=== PATIENT | male | born 1990 | race Caucasian/White ===

== ENCOUNTER 2020-05-08 22:11 | Emergency (ER) | payer OTHER ==
[~2020-05-08] VITALS: Ht 182.9 cm; Wt 72.6 kg
--- OUTSIDE RECORDS SUMMARY | ~2020-05-08 | XMS | Encounter Summary ---
Demographics + + + | Address | [address] | | | [place] [address] | + + + | Home Phone | | + + + | Preferred Language | Unknown | + + + | Marital Status | Single | + + + | Holiness Affiliation | Unknown | + + + | Race | White | + + + | Ethnic Group | Not or | + + + Author + + + | Author | [facility] | | | and [place] | + + + | Organization | [facility] | | | and [place] | + + + | Address | Unknown | + + + | Phone | Unavailable | + + + Support + + +---------+ + | Name | Relationship | Address | Phone | + + +---------+ + | Susan Devine | ECON | Unknown | | + + +---------+ + Care Team Providers + +------+ + | Care Overnight Houseperson Name | Role | Phone | + +------+ + PCP | Unavailable | + +------+ + Encounter Details +--------+ + + + + | Date | Type | Department | Care Team | Description | +--------+ + + + + | 05/22/ | Hospital | [facility] | Rupesh Cordova | | | 2011 | Encounter | HOSPITAL EMERGENCY | [address] | | | | | [address] | [facility] | | | | | [address] [place], [place] | [place] [address] | | | | | [address] | [phone] | | | | | [phone] | | | +--------+ + + + + Social History + +-------+ +--------+------+ | Tobacco Use | Types | Packs/Day | Years | Date | | | | | Used | | + +-------+ +--------+------+ | Never Assessed | | | | | + +-------+ +--------+------+ + + + | Sex Assigned at | Date Recorded | | | | + + + | Not on file | | + + + documented as of this encounter Plan of Treatment Not on filedocumented as of this encounter Visit Diagnoses Not on filedocumented in this encounter"
--- OUTSIDE RECORDS SUMMARY | ~2020-05-08 | XMS | Encounter Summary ---
Demographics + + + | Address | [address] | | | [place] [address] | + + + | Home Phone | | + + + | Preferred Language | Unknown | + + + | Marital Status | Single | + + + | Mandaeism Affiliation | Unknown | + + + | Race | White | + + + | Ethnic Group | Not or | + + + Author + + + | Author | [facility] | | | and [place] | + + + | Organization | [facility] | | | [...] Team Providers + +------+ + | Care Secretarial Stenographer Name | Role | Phone | + +------+ + PCP | Unavailable | + +------+ + Encounter Details +--------+ + + + + | Date | Type | Department | Care Team | Description | +--------+ + + + + | 06/29/ | Hospital | [facility] | Jonathan William | | | 2016 | Encounter | HOSPITAL EMERGENCY | [address] | | | | | [address] | [address] | | | | | [address] [place], [place] | [place], [place] [address] | | | | | [address] | [phone] | | | | | [phone] | | | +--------+ + + + [...]
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
--- OUTSIDE RECORDS SUMMARY | ~2020-05-08 | XMS | Encounter Summary ---
Demographics + + + | Address | [address] | | | [place] [address] | + + + | Home Phone | | + + + | Preferred Language | Unknown | + + + | Marital Status | Single | + + + | Lutheran Affiliation | Unknown | + + + | Race | White | + + + | Ethnic Group | Not or | + + + Author + + + | Author | [facility] | | | and [place] | + + + | Organization | [facility] | | | and [...] Team Providers + +------+ + | Care Hired Hand Name | Role | Phone | + +------+ + PCP | Unavailable | + +------+ + Encounter Details +--------+ + + + + | Date | Type | Department | Care Team | Description | +--------+ + + + + | 05/17/ | Hospital | [facility] | Nikkie Arnold, | | | 2011 | Encounter | HOSPITAL EMERGENCY | [address] | | | | | [address] | [place] | | | | | [place] | [address] | | | | | [address] | | | | | | [phone] | | | +--------+ + + + [...]
--- OUTSIDE RECORDS SUMMARY | ~2020-05-08 | XMS | Encounter Summary ---
Demographics + + + | Address | [address] | | | [place] [address] | + + + | Home Phone | | + + + | Preferred Language | Unknown | + + + | Marital Status | Single | + + + | Temple Affiliation | Unknown | + + + | Race | White | + + + | Ethnic Group | Not or | + + + Author + + + | Author | [facility] | | | and [place] | + + + | Organization | [facility] | | | and [...] Team Providers + +------+ + | Care Fisher Trawl Net Name | Role | Phone | + +------+ + PCP | Unavailable | + +------+ + Encounter Details +--------+ + + + + | Date | Type | Department | Care Team | Description | +--------+ + + + + | 04/19/ | Hospital | [facility] | Nikkie Arnold, | | | 2011 | Encounter | HOSPITAL EMERGENCY | [address] | | | | | [address] | [place] | | | | | [place] | [address] | | | | | [address] | | | | | | [phone] | | | +--------+ + + + [...]
--- OUTSIDE RECORDS SUMMARY | ~2020-05-08 | XMS | Encounter Summary ---
Demographics + + + | Address | [address] | | | [place] [address] | + + + | Home Phone | | + + + | Preferred Language | Unknown | + + + | Marital Status | Single | + + + | Yazidism Affiliation | Unknown | + + + | Race | White | + + + | Ethnic Group | Not or | + + + Author + + + | Author | [facility] | | | and [place] | + + + | Organization | [facility] | | | and [...] Team Providers + +------+ + | Care Well Testing Operator Name | Role | Phone | + +------+ + PCP | Unavailable | + +------+ + Encounter Details +--------+ + + + + | Date | Type | Department | Care Team | Description | +--------+ + + + + | 05/17/ | Hospital | [facility] | Nikkie Arnold, | | | 2011 | Encounter | HOSPITAL EMERGENCY | [address] | | | | | [address] | [place] | | | | | [place] | [address] | | | | | [address] | | | | | | [phone] | | | +--------+ + + + [...]
--- OUTSIDE RECORDS SUMMARY | ~2020-05-08 | XMS | Encounter Summary ---
Demographics + + + | Address | [address] | | | [place] [address] | + + + | Home Phone | | + + + | Preferred Language | Unknown | + + + | Marital Status | Single | + + + | Catholic Affiliation | Unknown | + + + | Race | White | + + + | Ethnic Group | Not or | + + + Author + + + | Author | [facility] | | | and [place] | + + + | Organization | [facility] | | | [...] Team Providers + +------+ + | Care Railroad Accountant Name | Role | Phone | + +------+ + PCP | Unavailable | + +------+ + Encounter Details +--------+ + + + + | Date | Type | Department | Care Team | Description | +--------+ + + + + | 07/07/ | [facility] | [facility] | Talib Garcia | | | 2011 | Encounter | HOSPITAL EMERGENCY | [address] | | | | | [address] | [facility] | | | | | [address] [place], [place] | [place] [address] | | | | | [address] | [phone] | | | | | [phone] | | | +--------+ + + + [...]
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
--- OUTSIDE RECORDS SUMMARY | ~2020-05-08 | XMS | Encounter Summary ---
Demographics + + + | Address | [address] | | | [place] [address] | + + + | Home Phone [...] + + + | Author | [facility] | | | and [place] | + + + | Organization | [facility] | | [...] Team Providers + +------+ + | Care Catshovel Driver Name | Role | Phone | + +------+ + PCP | Unavailable | + +------+ + Encounter Details +--------+ + + + + | Date | Type | Department | Care Team | Description | +--------+ + + + + | 12/18/ | [facility] | [facility] | Talib Garcia | | | 2011 | Encounter | HOSPITAL EMERGENCY | [address] | | | | | [address] | [facility] | | | | | [address] [place], [place] | [place] [address] | | | | | [address] | [phone] | | | | | [phone] | | | +--------+ + + + [...]
--- OUTSIDE RECORDS SUMMARY | ~2020-05-08 | XMS | Encounter Summary ---
Demographics + + + | Address | [address] | | | [place] [address] | + + + | Home Phone | | + + + | Preferred Language | Unknown | + + + | Marital Status | Single | + + + | Rastafarian Affiliation | Unknown | + + + | Race | White | + + + | Ethnic Group | Not or | + + + Author + + + | Author | [facility] | | | and [place] | + + + | Organization | [facility] | | | and [...] Team Providers + +------+ + | Care Ladies' Locker Room Attendant Name | Role | Phone | + +------+ + PCP | Unavailable | + +------+ + Encounter Details +--------+ + + + + | Date | Type | Department | Care Team | Description | +--------+ + + + + | 05/20/ | Hospital | [facility] | Jonathan William | | | 2011 | Encounter | HOSPITAL EMERGENCY | [address] | | | | | [address] | [address] | | | | | [address] [place], [place] | [place] [address] | | | | | [address] | [phone] | | | | | [phone] | | | +--------+ + + + [...]
--- OUTSIDE RECORDS SUMMARY | ~2020-05-08 | XMS | Encounter Summary ---
Demographics + + + | Address | [address] | | | [place] [address] | + + + | Home Phone | | + + + | Preferred Language | Unknown | + + + | Marital Status | Single | + + + | Christianity Affiliation | Unknown | + + + | Race | White | + + + | Ethnic Group | Not or | + + + Author + + + | Author | [facility] | | | and Neftaliana | + + + | Organization | [facility] | | | [...] Team Providers + +------+ + | Care Ncr Operator Name | Role | Phone | + +------+ + | No, Physician | PCP | Unavailable | + +------+ + Reason for Referral Evaluate & Treat (Routine) +--------+ + + + + + | Status | Reason | Specialty | Diagnoses / | Referred By | Referred To | | | | | Procedures | Contact | Contact | +--------+ + + + + + | Closed | Specialty | Urology | Diagnoses | Breanne, | Isma, | | | Services | | Naveen Sheppard | Jadon Mahmood, | | | Required | | Epididymo-or | MD [place] | [address] | | | | | chad | [address] | | | | | | [address] [place] | [place], | | | | | | [place] | [place] [address] | | | | | | [address] | Phone: | | | | | | Phone: | [phone] | | | | | | [phone] | Fax: | | | | | | Fax: | [phone] | | | | | | [phone] | | +--------+ + + + + + Reason for Visit + + + | Reason | Comments | + + + | Groin Swelling | | + + + Encounter Details +--------+ + + + + | Date | Type | Department | Care Team | Description | +--------+ + + + + | 02/27/ | Emergency | [facility] | Silver Raymundo | Epididymo-orchitis | | 2019 | | [facility] | MD [place] [address] | (Primary Dx) | | | | CENTER [address] | [address] [place] | | | | | [place], [place] | [place] [address] | | | | | [address] | [phone] | | | | | [phone] | | | +--------+ + + + + Social History + +-------+ +--------+------+ | Tobacco Use | Types | Packs/Day | Years | Date | | | | | Used | | + +-------+ +--------+------+ | Current Every Day | | 1 | | | | Smoker | | | | | + +-------+ +--------+------+ + + +---------+ + | Alcohol Use | Drinks/Week | oz/Week | Comments | + + +---------+ + | Yes | | | occ | + + +---------+ + + + + | Sex Assigned at | Date Recorded | | | | + + + | Not on file | | + + + documented as of this encounter Last Filed Vital Signs + + + + + | Vital Sign | Reading | Time Taken | Comments | + + + + + | Blood Pressure | 132/80 | 02/27/2019 10:16 AM | | | | | PDT | | + + + + + | Pulse | 80 | 02/27/2019 10:16 AM | | | | | PDT | | + + + + + | Temperature | 37.1 C (98.8 F) | 02/27/2019 10:16 AM | | | | | PDT | | + + + + + | Respiratory Rate | 16 | 02/27/2019 10:16 AM | | | | | PDT | | + + + + + | Oxygen Saturation | 97% | 02/27/2019 10:16 AM | | | | | PDT | | + + + + + | Inhaled Oxygen | - | - | | | Concentration | | | | + + + + + | Weight | 70.3 kg (155 lb) | 02/27/2019 10:16 AM | | | | | PDT | | + + + + + | Height | 182.9 cm (6') | 02/27/2019 10:16 AM | | | | | PDT | | + + + + + | Body Mass Index | 21.02 | 02/27/2019 10:16 AM | | | | | PDT | | + + + + + documented in this encounter Discharge Instructions AttachmentsThe following attachments cannot be sent through Care Everywhere.[facility] ([facility]Epididymitis (Urdu)documented in this encounter Medications at Time of Discharge + + + +---------+ + + | Medication | Sig | Dispensed | Refills | Start | End Date | | | | | | Date | | + + + +---------+ + + | azithromycin | Take 4 tablets by | 4 | 0 | 02/28/20 | | | (ZITHROMAX) 250 mg | mouth once. | tablet | | 19 | | | tablet | | | | | | + + + +---------+ + + | doxycycline | Take 1 tablet by | 20 | 0 | 02/28/20 | | | (VIBRAMYCIN) 100 mg | mouth 2 times daily | tablet | | 19 | 9 | | tablet | for 10 days. | | | | | + + + +---------+ + + | ondansetron | Take 1 tablet by | 12 | 0 | 02/28/20 | | | (ZOFRAN ODT) 4 mg | mouth every 8 hours | tablet | | 19 | 9 | | disintegrating | as needed for up to | | | | | | tablet | 4 days. | | | | | + + + +---------+ + + | | Take 1 tablet by | 15 | 0 | 08/11/20 | | | oxyCODONE-acetaminop | mouth every 8 hours | tablet | | 19 | 9 | | hen (PERCOCET) 5-325 | as needed for up to | | | | | | mg per tablet | 5 days. | | | | | + + + +---------+ + + documented as of this encounter ED Notes Lisa Easton, KASHMIR - 02/27/2019 11:52 AM PDTDC instructions given. Home with prescriptions and good understanding. Latanya Licea RN - 02/27/2019 10:15 AM PDTC/o right swollen testicle since waking this A M. Also c/o pain with urination. 10: 16 AM Silver Epperson MD - 02/27/2019 9:53 AM PDT [facility] Imtiaz Sánchez Emergency Department Encounter Note [address] [place] [id number] PCP:No Physician on file [phone] CHIEF COMPLAINT: Chief Complaint Patient presents with Groin Swelling ED Room: [facility] Imtiaz Sánchez is a 28 y.o. male who presents to the Emergency Department R testicle pain 5 out of 10 localized aching constant persistent gradual onset over last 24 hours no home medications tried no associated trauma. No other symptoms to report per Language line lang interpreter made available and used to collect historical details as needed. PAST MEDICAL & SURGICAL HISTORY There are no active problems to display for this patient. No past surgical history on file. CURRENT MEDICATIONS No current outpatient medications on file prior to encounter. ALLERGIES Allergies Allergen Reactions Penicillins Anaphylaxis Trazamine [Trazodone & Diet Manage Prod] Other (See Comments) erection FAMILY AND SOCIAL HISTORY No family history on file. Social History Socioeconomic History Marital status: Single Spouse name: Not on file Number of children: Not on file Years of education: Not on file Highest education level: Not on file Tobacco Use Smoking status: Current Every Day Smoker Packs/day: 1.00 Substance and Sexual Activity Alcohol use: Yes Comment: occ REVIEW OF SYSTEMS As in history of present illness. A 10 system review was otherwise negative. PHYSICAL EXAM VITAL SIGNS: (first vital signs):Temp: 37.1 C (98.8 F) Pulse: 80 Resp: 16 SpO2: 97 % BP : 132/80 Body mass index is 21.02 kg/m. Constitutional: Moderately uncomfortable male patient. HEENT: Atraumatic, PERRL, Oropharynx benign. Neck: Supple with full range of motion. No JVD, no lymphadenopathy, no meningismus and no cervical spine tenderness to palpation or step-off noted. Chest: Good air movement bilaterally. No wheezes, No, rales. Cardiovascular: Normal S1 S2 Abdomen: Soft, nontender., no rebound, guarding, or masses., bowel tones normal. and no pu lsatile masses. Back: Within normal limits, no CVA tenderness and no midline thoracic or lumbar spinal tend erness Extremities: Nontender. No lower extremity edema, no calf asymmetry. Present distal pulse s. Skin: Warm, Dry, No rashes Neurologic: Alert & oriented. No focal deficits, Speech normal, gait not tested Psychiatric: Normal mood, affect and judgement. exam performed with RN present no gross trauma or external lesions tender to palpation a t cord on right and right testicle. EKG 12-lead EKG shows LABS Results for orders placed or performed during the hospital encounter of 02/27/19 Urinalysis with Microscopic with Culture if Indicated Result Value Ref Range Color Yellow Light Yellow, Yellow, Straw Clarity Hazy (A) Clear pH, Urine 5.0 5.0 - 8.0 Specific [place] 1.027 1.001 - 1.030 Protein, Urine Negative Negative Blood, Urine Negative Negative Glucose, Urine Negative Negative Ketones, Urine Negative Negative Bilirubin, Urine Negative Negative Nitrite, Urine Negative Negative Leukocyte Esterase, Urine Negative Negative Urobilinogen, Urine Negative 0.2 mg/dL, 1.0 mg/dL, Negative WBC UA 15-25 (A) 0 - 2 /HPF RBC UA 0-2 0 - 2 /HPF SQUAMOUS EPITHELIAL UA 0-2 0 - 2 /LPF RENAL EPITHELIAL UA 0-2 0 - 2 /HPF BACTERIA UA Negative Negative /HPF MUCUS UA Present (A) Negative /LPF HYALINE CASTS UA 0-2 0 - 2 /LPF Drugs of Abuse, Screen, Urine Result Value Ref Range Amphetamine Screen, Urine Negative Negative Barbiturates Screen, Urine Negative Negative Benzodiazepines Screen, Urine Negative Negative Cannabinoids Screen, Urine Positive (A) Negative Cocaine Screen, Urine Negative Negative Methadone Screen, Urine Negative Negative Opiates Screen, Urine Negative Negative IMAGING STUDIES (X-Rays interpreted by ED Physician) US scrotum and testicle consistent with epididymitis ED COURSE & MEDICAL DECISION MAKING Pertinent Labs & Imaging studies were reviewed along with EMS notes and senior living record s if applicable. (See chart for details) Medications and Allergy list reviewed. Nurses note and old records were reviewed The patient was seen and examined, The patient was placed on the monitor and monitored. Pain controlled with percocet. Started on a course of azithromycin single dose and doxycycline. Screening labs are ordered UA concerning for chlamydial infection. The patient remained hemodynamically stable without evidence of shock or malperfusion durin g their ED course, at time of discharge patient is sitting/resting comfortably in no apparen t distress. The patient was counseled about their results and workup including all incidenta l findings and the need for out patient follow up to which they verbalized their understandi ng and were provided. The patient was counseled about the importance of medical recommendati ons today and the dangers including harm, , permanent injury, injury, morbidity, and mo rtality of non adherence to the treatment plan. They verbalize their understanding of today' s plan and agree with it. They were counseled that emergency services are available to them 24/ and to return to the ED immediately if symptoms return, persist, change, worsen or new symptoms develop. The patient was given follow up. They were given further strict, thorough, actionable return precautions to which they verbalized their understanding. The patient's q uestions were answered and the patient agreed with the plan. The patient was discharged in g ood stable condition. Last Set of Vital Signs: Temp: 37.1 C (98.8 F) Pulse: 80 Resp: 16 SpO2: 97 % BP: 132/80 FINAL IMPRESSION ICD-10-CM ICD-9-CM 1. Epididymo-orchitis N45.3 604.90 Follow-up Information [facility]. Specialty: Emergency Medicine Why: If symptoms worsen Contact information: [address] [place] [address] Jadon Ashby MD. Call today. Specialty: Urology Contact information: [address] [facility] [address] New Prescriptions AZITHROMYCIN (ZITHROMAX) 250 MG TABLET Take 4 tablets by mouth once. DOXYCYCLINE (VIBRAMYCIN) 100 MG TABLET Take 1 tablet by mouth 2 times daily for 10 days . ONDANSETRON (ZOFRAN ODT) 4 MG DISINTEGRATING TABLET Take 1 tablet by mouth every 8 hour s as needed for up to 4 days. OXYCODONE-ACETAMINOPHEN (PERCOCET) 5-325 MG PER TABLET Take 1 tablet by mouth every 8 h ours as needed for up to 5 days. Administrations This Visit azithromycin (ZITHROMAX) tablet 1,000 mg Admin Date 02/27/2019 Action Given Dose 1000 mg Route Oral Administered By Lisa Easton RN ondansetron (ZOFRAN ODT) disintegrating tablet 4 mg Admin Date 02/27/2019 Action Given Dose 4 mg Route Oral Administered By Latanya Walsh, KASHMIR oxyCODONE-acetaminophen (PERCOCET) 5-325 mg per tablet 1 tablet Admin Date 02/27/2019 Action Given Dose 1 tablet Route Oral Administered By Latanya Walsh RN Portions of this chart were created with [employer] voice recognition software. Inadvertent so und alike substitutions may be present and are unintentional Silver Raymundo MD 02/27/19 1145 documented i n this encounter Plan of Treatment + + +--------+ + + | Name | Type | Priori | Associated Diagnoses | Order Schedule | | | | ty | | | + + +--------+ + + | Urology [facility] - | Outpatient | Routin | Epididymo-orchitis | Ordered: 02/27/2019 | | Conor/Isma | Referral | e | | | + + +--------+ + + documented as of this encounter Procedures + +--------+ + + + | Procedure Name | Priori | Date/Time | Associated Diagnosis | Comments | | | ty | | | | + +--------+ + + + | US SCROTUM AND | STAT | 02/27/2019 | | Results for this | | TESTICLES | | 12:16 PM | | procedure are in the | | | | PDT | | results section. | + +--------+ + + + | URINALYSIS WITH | STAT | 02/27/2019 | | Results for this | | MICROSCOPIC WITH | | 10:24 AM | | procedure are in the | | CULTURE IF INDICATED | | PDT | | results section. | + +--------+ + + + | DRUGS OF ABUSE, | STAT | 02/27/2019 | | Results for this | | SCREEN, URINE | | 10:24 AM | | procedure are in the | | | | PDT | | results section. | + +--------+ + + + | C. TRACHOMATIS AND | STAT | 02/27/2019 | | Results for this | | N. GONORRHOEAE, NAAT | | 10:24 AM | | procedure are in the | | (APTIMA) | | PDT | | results section. | + +--------+ + + + documented in this encounter Results US Scrotum And Testicles (02/27/2019 12:16 PM PDT) + + | Specimen | + + | | + + + + + | Narrative | Performed At | + + + | TECHNIQUE: B-mode ultrasound with color and duplex doppler of the | [facility] | | testes and scrotum CLINICAL INFORMATION: testicle pain. | | | COMPARISONS: None available. FINDINGS: RIGHT SCROTUM: | | | Testicle: Normal in size and echotexture, without focal lesion. | | | Color Doppler: Normal color Doppler flow pattern of the testicle. | | | Size: 4.3 x 2.6 x 3.7 cm Epididymis: Edematous appearance of the | | | epididymal tail with moderate hyperemia. LEFT SCROTUM: | | | Testicle: Normal in size and echotexture, without focal lesion. | | | Color Doppler: Normal color Doppler flow pattern of the testicle. | | | Size: 4.6 x 2.4 x 3.5 cm Epididymis: Normal. No hyperemia. | | | HYDROCELE: None. VARICOCELE: None. IMPRESSION - Findings | | | are most compatible with right epididymitis. Notification: A | | | preliminary report was relayed to the ordering provider by the | | | glass technologist immediately following the exam. Dictated | | | and Signed by: Umesh Atkinson MD Electronically signed: 02/27/2019 | | | 4:50 PM | | + + + + + | Procedure Note | + + | El, Rad Results In - 02/27/2019 4:53 PM PDT TECHNIQUE: B-mode ultrasound with color | | and duplex doppler of the testes andscrotumCLINICAL INFORMATION: testicle | | pain.COMPARISONS: None available.FINDINGS: RIGHT SCROTUM:Testicle: Normal in size and | | echotexture, without focal lesion. Color Doppler: Normal color Doppler flow pattern of | | the testicle.Size: 4.3 x 2.6 x 3.7 cmEpididymis: Edematous appearance of the epididymal | | tail with moderate hyperemia.LEFT SCROTUM:Testicle: Normal in size and echotexture, | | without focal lesion. Color Doppler: Normal color Doppler flow pattern of the | | testicle.Size: 4.6 x 2.4 x 3.5 cmEpididymis: Normal. No | | hyperemia.HYDROCELE:None.VARICOCELE:None.IMPRESSION - Findings are most compatible with | | right epididymitis. Notification: A preliminary report was relayed to the ordering | | provider by theultrasound technologist immediately following the exam.Dictated and | | Signed by: Umesh Atkinson MD Electronically signed: 02/27/2019 4:50 PM | |Size: 4.3 x 2.6 x 3.7 cm | |Epididymis: Edematous appearance of the epididymal tail with moderate hyperemia. | | | | | |LEFT SCROTUM: | |Testicle: Normal in size and echotexture, without focal lesion. | |Color Doppler: Normal color Doppler flow pattern of the testicle. | |Size: 4.6 x 2.4 x 3.5 cm | |Epididymis: Normal. No hyperemia. | | | | | |HYDROCELE: | |None. | | | |VARICOCELE: | |None. | | | | | |IMPRESSION - Findings are most compatible with right epididymitis. | | | |Notification: A preliminary report was relayed to the ordering provider by the | |glass technologist immediately following the exam. | | | |Dictated and Signed by: Umesh Atkinson MD | | Electronically signed: 02/27/2019 4:50 PM | + + + +---------+ + + | Performing | Address | City/[facility] | Phone Number | | Organization | | | | + +---------+ + + | [facility] | | | | + +---------+ + + C. trachomatis and N. gonorrhoeae, NAAT ([facility]TIM[facility]) (02/27/2019 10:24 AM PDT) + + + + + + | Component | Value | Ref Range | Performed | Pathologist | | | | | At | Signature | + + + + + + | Chlamydia | Positive (A)Comment: | Negative | REFERENCE | | | trachomatis | This test result was | | LAB [facility] | | | PCR | obtained from a run of | | - BKR | | | | specimens where | | | | | | weexperienced a higher | | | | | | number of positive | | | | | | results than what | | | | | | istypically seen. | | | | | | Because it is not | | | | | | possible to completely | | | | | | eliminatethe possibility | | | | | | of specimen to specimen | | | | | | cross-contamination it | | | | | | ispossible that this | | | | | | result is a false | | | | | | positive. This result | | | | | | should beinterpreted in | | | | | | conjunction with the | | | | | | clinical findings in the | | | | | | patient. | | | | + + + + + + | Neisseria | Negative | Negative | REFERENCE | | | Gonorrhoeae | | | LAB [facility] | | | DNA PCR | | | - BKR | | + + + + + + + + | Specimen | + + | Urine - Urine | | specimen obtained by | | clean catch | | procedure (specimen) | + + + + + | Narrative | Performed At | + + + | Performed at: [address] [facility] [address], | REFERENCE LAB | | [place], [place] [id number] Electroencephalographic Technician: Nakul Chester MD, Phone: | KATHY MOSS | | [phone] | | + + + + + + + + | Performing | Address | City/State/Zipcode | Phone Number | | Organization | | | | + + + + + | REFERENCE LAB | [address] | [place], [place] | [phone] | | [facility] | [facility] | [address] | | + + + + + Drugs of Abuse, Screen, Urine (02/27/2019 10:24 AM PDT) + + + + + + | Component | Value | Ref Range | Performed | Pathologist | | | | | At | Signature | + + + + + + | Amphetamine | Negative | Negative | [facility] | | | Screen, | | | [facility] | | | Urine | | | MEDICAL | | | | | | CENTER - | | | | | | LABORATORY | | + + + + + + | Barbiturate | Negative | Negative | [facility] | | | s Screen, | | | [facility] | | | Urine | | | MEDICAL | | | | | | CENTER - | | | | | | LABORATORY | | + + + + + + | Benzodiazep | Negative | Negative | [facility] | | | ronny | | | [facility] | | | Screen, | | | MEDICAL | | | Urine | | | CENTER - | | | | | | LABORATORY | | + + + + + + | Cannabinoid | Positive (A) | Negative | [facility] | | | s Screen, | | | [facility] | | | Urine | | | MEDICAL | | | | | | CENTER - | | | | | | LABORATORY | | + + + + + + | Cocaine | Negative | Negative | [facility] | | | Screen, | | | [facility] | | | Urine | | | MEDICAL | | | | | | CENTER - | | | | | | LABORATORY | | + + + + + + | Methadone | Negative | Negative | [facility] | | | Screen, | | | [facility] | | | Urine | | | MEDICAL | | | | | | CENTER - | | | | | | LABORATORY | | + + + + + + | Opiates | Negative | Negative | [facility] | | | Screen, | | | [facility] | | | Urine | | | MEDICAL | | | | | | CENTER - | | | | | | LABORATORY | | + + + + + + + + | Specimen | + + | Urine - Urine | | specimen obtained by | | clean catch | | procedure (specimen) | + + + + + + + | Performing | Address | City/State/Zipcode | Phone Number | | Organization | | | | + + + + + | [facility] | [address] | [place] | [phone] | | [facility] | | [address] | | | - LABORATORY | | | | + + + + + Urinalysis with Microscopic with Culture if Indicated (02/27/2019 10:24 AM PDT) + + + + + + | Component | Value | Ref Range | Performed | Pathologist | | | | | At | Signature | + + + + + + | Color, | Yellow | Light Yellow, | [facility] | | | Urine | | Yellow, Straw | [facility] | | | | | | MEDICAL | | | | | | CENTER - | | | | | | LABORATORY | | + + + + + + | Clarity, | Hazy (A) | Clear | [facility] | | | Urine | | | [facility] | | | | | | MEDICAL | | | | | | CENTER - | | | | | | LABORATORY | | + + + + + + | pH, Urine | 5.0 | 5.0 - 8.0 | [facility] | | | | | | [facility] | | | | | | MEDICAL | | | | | | CENTER - | | | | | | LABORATORY | | + + + + + + | Specific | 1.027 | 1.001 - 1.030 | [facility] | | | [place], | | | [facility] | | | Urine | | | MEDICAL | | | | | | CENTER - | | | | | | LABORATORY | | + + + + + + | Protein, | Negative | Negative | [facility] | | | Urine | | | [facility] | | | | | | MEDICAL | | | | | | CENTER - | | | | | | LABORATORY | | + + + + + + | Blood, | Negative | Negative | [facility] | | | Urine | | | [facility] | | | | | | MEDICAL | | | | | | CENTER - | | | | | | LABORATORY | | + + + + + + | Glucose, | Negative | Negative | [facility] | | | Urine | | | [facility] | | | | | | MEDICAL | | | | | | CENTER - | | | | | | LABORATORY | | + + + + + + | Ketones, | Negative | Negative | [facility] | | | Urine | | | [facility] | | | | | | MEDICAL | | | | | | CENTER - | | | | | | LABORATORY | | + + + + + + | Bilirubin, | Negative | Negative | [facility] | | | Urine | | | [facility] | | | | | | MEDICAL | | | | | | CENTER - | | | | | | LABORATORY | | + + + + + + | Nitrite, | Negative | Negative | [facility] | | | Urine | | | [facility] | | | | | | MEDICAL | | | | | | CENTER - | | | | | | LABORATORY | | + + + + + + | Leukocyte | Negative | Negative | [facility] | | | Esterase, | | | [facility] | | | Urine | | | MEDICAL | | | | | | CENTER - | | | | | | LABORATORY | | + + + + + + | Urobilinoge | Negative | 0.2 mg/dL, 1.0 | [facility] | | | n, Urine | | mg/dL, Negative | [facility] | | | | | | MEDICAL | | | | | | CENTER - | | | | | | LABORATORY | | + + + + + + | White Blood | 15-25 (A) | 0 - 2 /HPF | [facility] | | | Cells, | | | [facility] | | | Urine | | | MEDICAL | | | | | | CENTER - | | | | | | LABORATORY | | + + + + + + | Red Blood | 0-2 | 0 - 2 /HPF | [facility] | | | Cells, | | | [facility] | | | Urine | | | MEDICAL | | | | | | CENTER - | | | | | | LABORATORY | | + + + + + + | Squamous | 0-2 | 0 - 2 /LPF | [facility] | | | Epithelial | | | [facility] | | | Cells, | | | MEDICAL | | | Urine | | | CENTER - | | | | | | LABORATORY | | + + + + + + | Renal | 0-2 | 0 - 2 /HPF | [facility] | | | Epithelial | | | [facility] | | | Cells, | | | MEDICAL | | | Urine | | | CENTER - | | | | | | LABORATORY | | + + + + + + | Bacteria, | Negative | Negative /HPF | [facility] | | | Urine | | | [facility] | | | | | | MEDICAL | | | | | | CENTER - | | | | | | LABORATORY | | + + + + + + | Mucus, | Present (A) | Negative /LPF | [facility] | | | Urine | | | [facility] | | | | | | MEDICAL | | | | | | CENTER - | | | | | | LABORATORY | | + + + + + + | Hyaline | 0-2 | 0 - 2 /LPF | [facility] | | | Casts, | | | [facility] | | | Urine | | | MEDICAL | | | | | | CENTER - | | | | | | LABORATORY | | + + + + + + + + | Specimen | + + | Urine - Urine | | specimen obtained by | | clean catch | | procedure (specimen) | + + + + + + + | Performing | Address | City/State/Zipcode | Phone Number | | Organization | | | | + + + + + | [facility] | [address] | [place] | [phone] | | [facility] | | [address] | | | - LABORATORY | | | | + + + + + documented in this encounter Visit Diagnoses + + | Diagnosis | + + | Epididymo-orchitis - Primary Orchitis and epididymitis, unspecified | + + documented in this encounter Administered Medications + +--------+ + +------+------+ | Medication Order | MAR | Action | Dose | Rate | Site | | | Action | Date | | | | + +--------+ + +------+------+ | azithromycin (ZITHROMAX) tablet | Given | 02/28/20 | 1,000 mg | | | | 1,000 mg 1,000 mg, Oral, ONCE, | | 19 11:08 | | | | | 02/27/19 at 1105, For 1 dose, | | AM PDT | | | | | Indications: Chlamydia Infection | | | | | | + +--------+ + +------+------+ +---+---+ | | | +---+---+ + +-------+ +------+---+---+ | ondansetron (ZOFRAN ODT) | Given | 02/28/20 | 4 mg | | | | disintegrating tablet 4 mg 4 mg, | | 19 10:27 | | | | | Oral, ONCE, 02/27/19 at 1025, | | AM PDT | | | | | For 1 dose | | | | | | + +-------+ +------+---+---+ +---+---+ | | | +---+---+ + +-------+ + +---+---+ | oxyCODONE-acetaminophen | Given | 02/28/20 | 1 tablet | | | | (PERCOCET) 5-325 mg per tablet 1 | | 19 10:27 | | | | | tablet 1 tablet, Oral, ONCE, Sun | | AM PDT | | | | | 02/27/19 at 1025, For 1 dose | | | | | | + +-------+ + +---+---+ +---+---+ | | | +---+---+ documented in this encounter"
--- OUTSIDE RECORDS SUMMARY | ~2020-05-08 | XMS | Encounter Summary ---
Demographics + + + | Address | [address] | | | [place] [address] | + + + | Home Phone | | + + + | Preferred Language | Unknown | + + + | Marital Status | Single | + + + | Amish Affiliation | Unknown | + + + | Race | White | + + + | Ethnic Group | Not or | + + + Author + + + | Author | [facility] | | | and [place] | + + + | Organization | [facility] | | | [...] Team Providers + +------+ + | Care Junior Sales Representative Name | Role | Phone | + +------+ + PCP | Unavailable | + +------+ + Encounter Details +--------+ + + + + | Date | Type | Department | Care Team | Description | +--------+ + + + + | 06/30/ | Hospital | [facility] | Yelena [place], | | | 2011 | Encounter | [facility] | GLUE JOINTER OPERATOR [address] | | | | | CENTER [address] | [address] [place] | | | | | [place] | [phone] | | | | | [phone] | | | | | | [phone] | | | +--------+ + + + [...]
--- OUTSIDE RECORDS SUMMARY | ~2020-05-08 | XMS | Clinical Summary ---
Demographics + + + | Address | [address] | | | [place] [address] | + + + | Home Phone [...] + | Author | [facility] | | | and [place] | + + + | Organization | [facility] | | | and [...] Team Providers + +------+ + | Care Clothing Man Name | Role | Phone | + +------+ + | No, Physician | PCP | Unavailable | + +------+ + Allergies + + + + + + | Active Allergy | Reactions | Severity | Noted | Comments | | | | | Date | | + + + + + + | Penicillins | Anaphylaxis | High | 02/28/20 | | | | | | 19 | | + + + + + + | Trazodone & Diet | Other (See Comments) | | 02/28/20 | erection | | Manage Prod | | | 19 | | + + + + + + Medications + + + +---------+------+------+-------+ | Medication | Sig | Dispensed | Refills | Star | End | Statu | | | | | | t | Date | s | | | | | | Date | | | + + + +---------+------+------+-------+ | azithromycin | Take 4 tablets by | 4 | 0 | 02/17 | | Activ | | (ZITHROMAX) 250 mg | mouth once. | tablet | | 08/08 | | e | | tablet | | | | 19 | | | + + + +---------+------+------+-------+ Active Problems Not on file Social History + +-------+ +--------+------+ | Tobacco [...] on file | | + + + Last Filed Vital Signs + + + [...] | | + + + + + Plan of Treatment + + + + + | Health Maintenance | Due Date | Last | Comments | | | | Done | | + + + + + | Hepatitis C | | | | | Screening | 1 | | | + + + + + | Vaccine: | | | | | Pneumococcal 19-64 | 7 | | | | (1 of 1 - PPSV23) | | | | + + + + + | Vaccine: Influenza | | 05/27/20 | | | (#1) | 0 | 18, | | | | | 04/25/20 | | | | | 13, | | | | | 05/02/20 | | | | | 11, | | | | | Addition | | | | | al | | | | | history | | | | | exists | | + + + + + | Vaccine: | | 01/31/20 | | | Dtap/Tdap/Td (8 - | 3 | 13, | | | Td) | | 10/17/19 | | | | | 12, | | | | | 10/29/19 | | | | | 07, | | | | | Addition | | | | | al | | | | | history | | | | | exists | | + + + + + Results Not on filefrom Last 3 Months Insurance + +--------+ +--------+ +---------+--------+ | Payer | Benefi | Subscriber | Effect | Phone | Address | Type | | | t Plan | ID | sommer | | | | | | / | | Dates | | | | | | Group | | | | | | + +--------+ +--------+ +---------+--------+ | [employer] | [employer] | [id number] | | [phone] | | Medica | | MEDICAID HMO | HEALTH | | 019-Pr | 1 | | id | | | MDCD | | esent | | | | | | [place] | | | | | | + +--------+ +--------+ +---------+--------+ + +--------+ +--------+ + + | Guarantor Name | Accoun | Relation to | Date | Phone | Billing Address | | | t Type | Patient | of | | | | | | | | | | + +--------+ +--------+ + + | Imtiaz Sánchez | Person | Self [birth year] | [address] | | [place] | al/Fam | | 1990 | [phone] | [address], | | | [place] | | | [address] (Home) | [place] [address] | + +--------+ +--------+ + + Advance Directives + + + + + | Type | Date Recorded | Patient | Explanation | | | | Usability Engineer | | + + + + + | Power of | | | | | Post Tensioning Ironworker | | | | + + + + + | Advance | 02/27/2019 11:14 | | | | Directive | AM | | | + + + + +"
[~2020-05-08 22:11] MED LIST: ACETAMINOPHEN-1 EAC1 PO; CITALOPRAM HBR40 MG PO; FLEXERIL10 MG PO; HYDROCODON-ACE1 EAC8 PO; IBUPROFEN800 MG PO; LAMOTRIGINE150 MG PO; MOTRIN800 MG PO; NAPROXEN500 MG PO; NORCO 5-325 TA1 EACH PO; NORCO 7.5-3251 EACH PO; ULTRAM50 MG PO
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
[2020-05-08] MEDS ORDERED: NAPROXEN500 MG PO (23:12)
== END 2020-05-08 23:50 | disposition home or self-care (01) ==
LOC: ED 22:11
DX: S46.911A Strain of unspecified muscle, fascia and tendon at shoulder and upper arm level, right arm, initial encounter (principal); X58.XXXA Exposure to other specified factors, initial encounter; F43.10 Post-traumatic stress disorder, unspecified; F31.9 Bipolar disorder, unspecified; F90.9 Attention-deficit hyperactivity disorder, unspecified type; J45.909 Unspecified asthma, uncomplicated; F17.200 Nicotine dependence, unspecified, uncomplicated; Z88.0 Allergy status to penicillin; Z88.8 Allergy status to other drugs, medicaments and biological substances; Z88.5 Allergy status to narcotic agent; Z91.040 Latex allergy status
CPT/HCPCS: 73030; 99283-25

== ENCOUNTER 2020-07-24 22:25 | Emergency (ER) | payer OTHER ==
[~2020-07-24] VITALS: Ht 182.9 cm; Wt 68.0 kg
--- OUTSIDE RECORDS SUMMARY | 2020-07-24 22:28 | XMS ---
PreManage Notification: MIGUEL DUDLEY Security Jr. Systems Administrator Events No recent Security Events currently on file CRITERIA MET - Group Notification - [facility] - Has Care Guidelines CARE PROVIDERS There are no care providers on record at this time. Guidelines Source: [employer] [facility] [place] Guidelines Date: 03/09/2019 Care Coordination: Receiving mental health services with [employer].\T\nbsp; Please contact [employer] for mental health concerns.\T\nbsp; [place]: [phone]\T\ nbsp; [place]: [phone]. E.D. VISIT COUNT (12 MO.) 2 [facility] TOTAL 2 NOTE: Visits indicate total known visits. ED/UCC VISIT TRACKING (12 MO.) 07/24/2020 22:26 [facility] [place] TYPE: Emergency COMPLAINT: - VOMITING 05/08/2020 22:12 [facility] [place] TYPE: Emergency COMPLAINT: - RT SHOULDER INJURY DIAGNOSES: - Latex allergy status - Allergy status to other drugs, medicaments and biological substances - Unspecified asthma, uncomplicated - Bipolar disorder, unspecified - Exposure to other specified factors, initial encounter - Strain of unspecified muscle, fascia and tendon at shoulder and upper arm level, right arm, initial encounter - Allergy status to penicillin - Nicotine dependence, unspecified, uncomplicated - Attention-deficit hyperactivity disorder, unspecified type - Allergy status to narcotic agent - Post-traumatic stress disorder, unspecified - Pain in right shoulder INPATIENT VISIT TRACKING (12 MO.) No inpatient visits to display in this time frame [email or web address]
[2020-07-25] MEDS ORDERED: ONDANSETRON ODT4 MG PO (00:53)
[2020-07-25] MEDS ORDERED: MAALOX ADVANCE1 EACH PO (00:53)
== END 2020-07-25 01:11 | disposition home or self-care (01) ==
LOC: ED 22:25
DX: R07.0 Pain in throat (principal); R11.2 Nausea with vomiting, unspecified; R09.89 Other specified symptoms and signs involving the circulatory and respiratory systems; J45.909 Unspecified asthma, uncomplicated; F17.200 Nicotine dependence, unspecified, uncomplicated; Z88.8 Allergy status to other drugs, medicaments and biological substances; Z88.0 Allergy status to penicillin; Z91.030 Bee allergy status; Z88.5 Allergy status to narcotic agent; Z91.040 Latex allergy status
CPT/HCPCS: 70360; 71046; 99284-25

== ENCOUNTER 2020-08-01 15:04 | Emergency (ER) | payer OTHER ==
[~2020-08-01] VITALS: Ht 182.9 cm; Wt 76.7 kg
[~2020-08-01 15:04] MED LIST changes: +MAALOX ADVANCE1 EACH PO; +ONDANSETRON ODT4 MG PO
--- OUTSIDE RECORDS SUMMARY | 2020-08-01 15:08 | XMS ---
PreManage Notification: MIGUEL DUDLEY Security Master Steam Yacht Events No recent Security Events currently on file CRITERIA MET - Group Notification - [facility] - Has Care Guidelines - [facility] - 2 Visits in 30 Days CARE PROVIDERS [facility]Current PHONE: [phone] Guidelines Source: [employer] [facility] [place] Guidelines Date: 03/09/2019 Care Coordination: Receiving mental health services with [employer].\T\nbsp; Please contact [employer] for mental health concerns.\T\nbsp; [facility]: [phone]\T\ nbsp; [place]: [phone]. E.D. VISIT COUNT (12 MO.) 3 [facility] TOTAL 3 NOTE: Visits indicate total known visits. ED/UCC VISIT TRACKING (12 MO.) 08/01/2020 15:05 [facility] [place] TYPE: Emergency COMPLAINT: - CHIN/NECK LACERATION INJURY 07/24/2020 22:26 [facility] [place] TYPE: Emergency COMPLAINT: - VOMITING DIAGNOSES: - Nicotine dependence, unspecified, uncomplicated - Allergy status to narcotic agent - Nausea with vomiting, unspecified - Other specified symptoms and signs involving the circulatory and respiratory systems - Unspecified asthma, uncomplicated - Latex allergy status - Allergy status to other drugs, medicaments and biological substances - Allergy status to penicillin - Bee allergy status - Pain in throat 05/08/2020 22:[address] [facility] [place] [...] visits to display in this time frame [email or web address]
== END 2020-08-01 18:37 | disposition home or self-care (01) ==
LOC: ED 15:04
DX: S06.9X9A Unspecified intracranial injury with loss of consciousness of unspecified duration, initial encounter (principal); S00.83XA Contusion of other part of head, initial encounter; W01.198A Fall on same level from slipping, tripping and stumbling with subsequent striking against other object, initial encounter; J45.909 Unspecified asthma, uncomplicated; F17.200 Nicotine dependence, unspecified, uncomplicated; Z91.030 Bee allergy status; Z88.0 Allergy status to penicillin; Z88.5 Allergy status to narcotic agent; Z91.040 Latex allergy status
CPT/HCPCS: 70450; 70486; 72125; 96374; 96375; 99284-25; J1170; J2405

== ENCOUNTER 2022-09-18 22:55 | Emergency (ER) | payer OTHER ==
[~2022-09-18] VITALS: Ht 182.9 cm; Wt 76.7 kg
--- OUTSIDE RECORDS SUMMARY | 2022-09-18 23:03 | XMS ---
PreManage Notification: MIGUEL DUDLEY Security Professor Of Poultry Science Events No recent Security Events currently on file CRITERIA MET - Group Notification CARE PROVIDERS -, [place]- Dentist: Health Insurance Specialist [facility] PHONE: [phone] [facility] PHONE: Unknown Care Guidelines exist for the following facilities: [facility] ( 09/10/2020 ) Care History Medical/Surgical 08/02/2020 [facility] - PATIENT ESTABLISHED CARE WITH DR ABEBE 08/01/2020. E.DEduard VISIT COUNT (12 MO.) 1 [facility] TOTAL 1 NOTE: Visits indicate total known visits. ED/UCC VISIT TRACKING (12 MO.) 09/18/2022 22:56 [facility] [place] TYPE: Emergency COMPLAINT: - DRUG USE INPATIENT VISIT TRACKING (12 MO.) No inpatient visits to display in this time frame [id number]
== END 2022-09-19 01:15 | disposition home or self-care (01) ==
LOC: ED 22:55
DX: S60.511A Abrasion of right hand, initial encounter (principal); F41.9 Anxiety disorder, unspecified; F10.129 Alcohol abuse with intoxication, unspecified; Y90.5 Blood alcohol level of 100-119 mg/100 ml; F15.10 Other stimulant abuse, uncomplicated; F43.10 Post-traumatic stress disorder, unspecified; J45.909 Unspecified asthma, uncomplicated; W22.8XXA Striking against or struck by other objects, initial encounter; F17.200 Nicotine dependence, unspecified, uncomplicated; Z88.0 Allergy status to penicillin; Z88.8 Allergy status to other drugs, medicaments and biological substances; Z91.030 Bee allergy status; Z88.5 Allergy status to narcotic agent; Z91.040 Latex allergy status
CPT/HCPCS: 36415; 80053; 85025; 99284; A9270; G0480

== ENCOUNTER 2024-06-10 14:30 | Emergency (ER) | payer SELFPAY ==
[~2024-06-10] VITALS: Ht 182.9 cm; Wt 78.4 kg
--- OUTSIDE RECORDS SUMMARY | 2024-06-10 14:51 | XMS ---
PreManage Notification: MIGUEL DUDLEY Security Emerging Technologies Director Events No recent Security Events currently on file CRITERIA MET - Group Notification CARE PROVIDERS -, [place]- Dentist: Lead Sharepoint Developer [facility] PHONE: [phone] [facility] PHONE: Unknown Care Guidelines exist for the following facilities: [facility] ( 03/09/2019 ) Care History Medical/Surgical 08/02/2020 [facility] \R\- PATIENT ESTABLISHED CARE WITH DR ABEBE 08/01/2020. E.D. VISIT COUNT (12 MO.) 1 [facility] TOTAL 1 NOTE: Visits indicate total known visits. ED/UCC VISIT TRACKING (12 MO.) 06/10/2024 14:30 [facility] [place] TYPE: Emergency COMPLAINT: - SKIN PROBLEM INPATIENT VISIT TRACKING (12 MO.) No inpatient visits to display in this time frame [email or web address]
[2024-06-10] MEDS ORDERED: BACTRIM DS TAB1 EACH PO (16:14)
[2024-06-10] MEDS ORDERED: CEPHALEXIN MONOHYDRATE 500 MG CAP PO ONE (16:15)
[2024-06-10 16:18] VITALS: BP 119/78
== END 2024-06-10 16:18 | disposition home or self-care (01) ==
LOC: ED 14:30
DX: L02.31 Cutaneous abscess of buttock (principal); J45.909 Unspecified asthma, uncomplicated; Z88.0 Allergy status to penicillin; Z88.5 Allergy status to narcotic agent; Z88.8 Allergy status to other drugs, medicaments and biological substances; Z91.018 Allergy to other foods; Z91.030 Bee allergy status; Z91.040 Latex allergy status
CPT/HCPCS: 99282; A9270

== ENCOUNTER 2025-05-25 12:10 | Emergency (ER) | payer OTHER ==
[~2025-05-25] VITALS: Ht 182.9 cm; Wt 82.9 kg
[~2025-05-25 12:10] MED LIST changes: +BACTRIM DS TAB1 EACH PO
--- OUTSIDE RECORDS SUMMARY | 2025-05-25 12:17 | XMS ---
PreManage Notification: MIGUEL DUDLEY Security Respiratory Therapy Technician Events No recent Security Events currently on file CRITERIA MET - Group Notification CARE PROVIDERS -, [facility] Dentist: Structural Engineering Drafting Officer Current [place] PHONE: [phone] [facility]: Unknown Care Guidelines exist for the following facilities: [facility] ( 03/09/2019 ) Care History Medical/Surgical 08/02/2020 [facility] \R\- PATIENT ESTABLISHED CARE WITH DR ABEBE 08/01/2020. E.D. VISIT COUNT (12 MO.) 2 [facility] TOTAL 2 NOTE: Visits indicate total known visits. ED/UCC VISIT TRACKING (12 MO.) 05/25/2025 12:11 [facility] [place] TYPE: Emergency COMPLAINT: - MOUTH PAIN 06/10/2024 14:30 [facility] [place] TYPE: Emergency COMPLAINT: - SKIN PROBLEM DIAGNOSES: - Allergy status to narcotic agent - Allergy status to other drugs, medicaments and biological substances - Allergy status to penicillin - Allergy to other foods - Bee allergy status - Cutaneous abscess of buttock - Latex allergy status - Unspecified asthma, uncomplicated - Unspecified open wound of unspecified buttock, initial encounter INPATIENT VISIT TRACKING (12 MO.) No inpatient visits to display in this time frame [email or web address]
[2025-05-25] MEDS ORDERED: CLEOCIN HCL300 MG PO (12:48)
[2025-05-25 12:51] VITALS: BP 129/79
== END 2025-05-25 12:54 | disposition home or self-care (01) ==
LOC: ED 12:10
DX: K08.89 Other specified disorders of teeth and supporting structures (principal); J45.909 Unspecified asthma, uncomplicated; F17.200 Nicotine dependence, unspecified, uncomplicated; F43.10 Post-traumatic stress disorder, unspecified; Z88.0 Allergy status to penicillin; Z88.5 Allergy status to narcotic agent; Z91.040 Latex allergy status; Z88.8 Allergy status to other drugs, medicaments and biological substances
CPT/HCPCS: 99283